=== PATIENT | male | born 1970 | race Hispanic/Latino ===

== ENCOUNTER 2016-11-30 03:07 | Emergency (ER) | payer SELFPAY ==
[2016-11-30 03:29] VITALS: BP 124/87
== END 2016-11-30 04:35 | disposition left against medical advice (07) ==
LOC: ED 03:07
DX: R06.02 Shortness of breath (principal); Z53.21 Procedure and treatment not carried out due to patient leaving prior to being seen by health care provider

== ENCOUNTER 2018-03-21 06:33 | Emergency (ER) | payer SELFPAY ==
[2018-03-21 06:47] VITALS: BP 151/93
[2018-03-21] MEDS ORDERED: CLEOCIN PO ONE (07:49)
--- NOTE | 2018-03-21 07:58 | Emergency Department Report ---
- General Chief complaint: Skin/Abscess/Foreign Body Stated complaint: WRIST RASH Time Seen by Provider: 03/21/18 07:49 Source: patient Mode of arrival: Ambulatory Limitations: No Limitations - History of Present Illness Initial comments: This is a 48-year-old male nontoxic, well nourished in appearance, no acute signs of distress presents to the ED with c/o of left wrist redness 4 days. They stated that he seen his primary care doctor 4 days ago and hasn't prescribed antibiotics for staph infection but has not filled it. He stated that he is homeless and had no money. Patient denies any pus, drainage, swelling, fever, chills, nausea, vomiting, chest pain shortness of breath. Patient denies any allergies. MD complaint: insect bite/sting -: days(s) (4) Location: LUE Severity: mild Severity scale (0 -10): 8 Quality: aching Consistency: constant Improves with: none Worsens with: none Context: none Associated symptoms: denies other symptoms - Related Data Previous Rx's Medication Instructions Recorded Last Taken Type Cyclobenzaprine [Flexeril 10mg] 10 mg PO TID PRN #30 tablet 02/03/14 Unknown Rx HYDROcodone/APAP 5-325 [[place] 1 each PO Q6HR PRN #20 tablet 02/03/14 Unknown Rx 5/325] Sulfamethoxazole/Trimethoprim 1 each PO BID #20 tablet 10/01/15 Unknown Rx [Bactrim DS TAB] traMADol [Ultram] 50 mg PO Q6HR PRN #14 tablet 10/01/15 Unknown Rx Ibuprofen [Motrin] 600 mg PO Q8H PRN #20 tablet 03/21/18 Unknown Rx Sulfamethoxazole/Trimethoprim 1 each PO BID #20 tablet 03/21/18 Unknown Rx [Bactrim DS TAB] Allergies Allergy/AdvReac Type Severity Reaction Status Date / Time No Known Allergies Allergy Verified 02/03/14 07:50 Abscess Boil HPI - HPI Chief Complaint: Skin/Abscess/Foreign Body Stated Complaint: WRIST RASH Time Seen by Provider: 03/21/18 07:49 Home Medications: Previous Rx's Medication Instructions Recorded Last Taken Type Cyclobenzaprine [Flexeril 10mg] 10 mg PO TID PRN #30 tablet 02/03/14 Unknown Rx HYDROcodone/APAP 5-325 [[place] 1 each PO Q6HR PRN #20 tablet 02/03/14 Unknown Rx 5/325] Sulfamethoxazole/Trimethoprim 1 each PO BID #20 tablet 10/01/15 Unknown Rx [Bactrim DS TAB] traMADol [Ultram] 50 mg PO Q6HR PRN #14 tablet 10/01/15 Unknown Rx Ibuprofen [Motrin] 600 mg PO Q8H PRN #20 tablet 03/21/18 Unknown Rx Sulfamethoxazole/Trimethoprim 1 each PO BID #20 tablet 03/21/18 Unknown Rx [Bactrim DS TAB] Allergies/Adverse Reactions: Allergies Allergy/AdvReac Type Severity Reaction Status Date / Time No Known Allergies Allergy Verified 02/03/14 07:50 ED Review of Systems ROS: Stated complaint: WRIST RASH Other details as noted in HPI Constitutional: denies: chills, fever Eyes: denies: eye pain, eye discharge, vision change ENT: denies: ear pain, throat pain Respiratory: denies: cough, shortness of breath, wheezing Cardiovascular: denies: chest pain, palpitations Endocrine: no symptoms reported Gastrointestinal: denies: abdominal pain, nausea, diarrhea Genitourinary: denies: urgency, dysuria Musculoskeletal: denies: back pain, joint swelling, arthralgia Skin: denies: rash, lesions Neurological: denies: headache, weakness, paresthesias Psychiatric: denies: anxiety, depression Hematological/Lymphatic: denies: easy bleeding, easy bruising ED Past Medical Hx - Past Medical History Previous Medical History?: Yes Additional medical history: Staph infection, Testicle Distortion, Chronic Shoulder 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 a work accident - Surgical History Past Surgical History?: Yes Additional Surgical History: Testicle Distortion - Social History Smoking Status: Current Some Day Smoker - Medications Home Medications: Home Medications Medication Instructions Recorded Confirmed Last Taken Type Cyclobenzaprine [Flexeril 10mg] 10 mg PO TID PRN #30 tablet 02/03/14 Unknown Rx HYDROcodone/APAP 5-325 [[place] 1 each PO Q6HR PRN #20 tablet 02/03/14 Unknown Rx 5/325] Sulfamethoxazole/Trimethoprim 1 each PO BID #20 tablet 10/01/15 Unknown Rx [Bactrim DS TAB] traMADol [Ultram] 50 mg PO Q6HR PRN #14 tablet 10/01/15 Unknown Rx Ibuprofen [Motrin] 600 mg PO Q8H PRN #20 tablet 03/21/18 Unknown Rx Sulfamethoxazole/Trimethoprim 1 each PO BID #20 tablet 03/21/18 Unknown Rx [Bactrim DS TAB] ED Physical Exam - General Limitations: No Limitations General appearance: alert, in no apparent distress - Head Head exam: Present: atraumatic, normocephalic - Eye Eye exam: Present: normal appearance - Neck Neck exam: Present: normal inspection, full ROM - Extremities Exam Extremities exam: Present: normal inspection, full ROM, tenderness, normal capillary refill. Absent: joint swelling - Expanded Upper Extremity Exam Left General: Present: normal inspection Shoulder Exam: Present: normal inspection, full ROM Upper Arm exam: Present: normal inspection, full ROM Elbow exam: Present: normal inspection, full ROM Forearm Wrist exam: Present: normal inspection, full ROM Hand Wrist exam: Present: normal inspection, full ROM, tenderness, erythema. Absent: swelling, abrasion, laceration, ecchymosis, deformity, crepidus, dislocation, amputation, nail avulsion, subungual hematoma Hand L/R Back: 1 - Erythema with tenderness to touch with no induration or fluctuance. Vascular: Present: vascular compromise, normal capillary refill - Back Exam Back exam: Present: normal inspection, full ROM - Neurological Exam Neurological exam: Present: alert, oriented X3 - Psychiatric Psychiatric exam: Present: normal affect, normal mood - Skin Skin exam: Present: warm, dry, intact, normal color. Absent: rash ED Course Vital Signs 03/21/18 03/21/18 06:36 07:06 Temperature 97.5 F L 97.5 F L Pulse Rate 111 H 110 H Respiratory 18 18 Rate Blood Pressure 151/93 151/93 O2 Sat by Pulse 100 99 Oximetry - Reevaluation(s) Reevaluation #1: 03/21/18 07:58 Patient is speaking in full sentences with no signs of distress noted. ED Medical Decision Making - Medical Decision Making This is a 48-year-old male that presents with cellulitis. Patient is stable and was examined by me. There is no induration, fluctuance. No signs of abscess formation. The area has been outlined with a permanent marker and patient was instructed to observe symptoms of increased redness or swelling and to return to the ER if this does occur. I will discharge patient with Bactrim with good RX card as this may be free at [facility]. Patient did received first dose in the ED of clinda 600 mg in the ER. Patient was referred to Follow-up with a primary care doctor in 3-5 days or if symptoms worsen and continue return to emergency room as soon as possible. At time of discharge, the patient does not seem toxic or ill in appearance. No acute signs of distress noted. Patient agrees to discharge treatment plan of care. No further questions noted by the patient. Critical care attestation.: If time is entered above; I have spent that time in minutes in the direct care of this critically ill patient, excluding procedure time. ED Disposition Clinical Impression: Cellulitis Qualifiers: Site of cellulitis: extremity Site of cellulitis of extremity: upper extremity Laterality: left Qualified Code(s): L03.114 - Cellulitis of left upper limb Disposition: DC- TO HOME OR SELFCARE Is pt being admited?: No Does the pt Need Aspirin: No Condition: Stable Instructions: Cellulitis (ED) Additional Instructions: Follow-up with a primary care doctor in 3-5 days or if symptoms worsen and continue return to emergency room as soon as possible. As instructed and directed to you in the ED, if swelling occurs or symptoms of r edness worsens please come back to the ED for further evaluation and treatment with possible incision and drainage. Go to your nearest Public pharmacy, as Bactrim may be at a very low cost/free. Prescriptions: Ibuprofen [Motrin] 600 mg PO Q8H PRN #20 tablet PRN Reason: Pain Sulfamethoxazole/Trimethoprim [Bactrim DS TAB] 1 each PO BID #20 tablet Referrals: PRIMARY CAREMD [Referring] - 3-5 Days KATERINA AMIN MD [Staff Physician] - 3-5 Days [facility] [place] [Outside] - 3-5 Days [facility] [Outside] - 3-5 Days
== END 2018-03-21 08:05 | disposition home or self-care (01) ==
LOC: ED 06:33
DX: L03.114 Cellulitis of left upper limb (principal); F17.200 Nicotine dependence, unspecified, uncomplicated
CPT/HCPCS: 99282

== ENCOUNTER 2020-02-14 10:14 | Emergency (ER) | payer SELFPAY ==
[2020-02-14 11:10] LABS: Basophils # (Auto) 0.1 K/mm3 (0.0-0.1); Basophils % (Auto) 1.1 % (0.0-1.8); Eosinophils # (Auto) 0.9 K/mm3 (0.0-0.4); Eosinophils % (Auto) 6.9 % (0.0-4.3); Hematocrit 47.8 % (35.5-45.6); Hemoglobin 15.8 gm/dl (11.8-15.2); Lymphocytes # (Auto) 3.5 K/mm3 (1.2-5.4); Lymphocytes % (Auto) 26.8 % (13.4-35.0); Mean Corpuscular HGB Conc 33 % (32-34); Mean Corpuscular Volume 93 fl (84-94); Monocytes # (Auto) 1.2 K/mm3 (0.0-0.8); Monocytes % (Auto) 8.8 % (0.0-7.3); Platelet Count 547 K/mm3 (140-440); Red Blood Count 5.13 M/mm3 (3.65-5.03); Red Cell Distribution Width 12.9 % (13.2-15.2)
[2020-02-14 11:36] LABS: Alanine Aminotransferase 50 units/L (7-56); Albumin 4.2 g/dL (3.9-5); Blood Urea Nitrogen 13 mg/dL (9-20); Calcium 9.5 mg/dL (8.4-10.2); Hemolysis Index 18
[2020-02-14 11:44] LABS: BUN/Creatinine Ratio 19
[2020-02-14 11:49] LABS: Amorphous Crystals,Urine 1+; Bilirubin,Urine NEG (Negative); Blood,Urine NEG (Negative); Color,Urine Yellow (Yellow); Mucus,Urine FEW /HPF; Protein,Urine <15 mg/dL mg/dL (Negative)
[2020-02-14 11:50] LABS: RBC,Urine < 1.0 /HPF (0.0-6.0)
[2020-02-14] MEDS ORDERED: ONDANSETRON 4 MG/2 ML INJ IV ONE (13:15)
[2020-02-14] MEDS ORDERED: SODIUM CHLORIDE 0.9% 1000 ML 1,000 ML IV ONE (13:15)
[2020-02-14] MEDS ORDERED: MORPHINE 4 MG/1 ML INJ IV ONE (13:15)
--- NOTE | 2020-02-14 13:15 | Emergency Department Report ---
ED Abdominal Pain HPI - General Chief Complaint: Abdominal Pain Stated Complaint: BACK PAIN Time Seen by Provider: 02/14/20 12:44 Source: patient Mode of arrival: Ambulatory Limitations: No Limitations - History of Present Illness Initial Comments: This is a pleasant 50-year-old male presents the emergency department chief complaint of left lower quadrant pain for the past 10 days. Patient reports it starts in the left side of his back and radiates to the left lower quadrant. He reports there is associated painful urination and pain in the groin. He rates severity of his pain is an 8 out of 10. He denies any associated fever, chills, night sweats, headache, dizziness, blurry vision, nausea, vomit, diarrhea, chest pain, shortness of breath or any other associated symptoms. Severity scale (0 -10): 8 - Related Data Previous Rx's Medication Instructions Recorded Last Taken Type Cyclobenzaprine [Flexeril 10mg] 10 mg PO TID PRN #30 tablet 02/03/14 Unknown Rx HYDROcodone/APAP 5-325 [[place] 1 each PO Q6HR PRN #20 tablet 02/03/14 Unknown Rx 5/325] Sulfamethoxazole/Trimethoprim 1 each PO BID #20 tablet 10/01/15 Unknown Rx [Bactrim DS TAB] traMADoL [Ultram] 50 mg PO Q6HR PRN #14 tablet 10/01/15 Unknown Rx Ibuprofen [Motrin] 600 mg PO Q8H PRN #20 tablet 03/21/18 Unknown Rx Sulfamethoxazole/Trimethoprim 1 each PO BID #20 tablet 03/21/18 Unknown Rx [Bactrim DS TAB] Acetaminophen with Codeine 1 each PO Q6HR #12 tablet 02/14/20 Unknown Rx [Acetaminophen-Codeine #4 TAB] Ciprofloxacin HCl [Ciprofloxacin 500 mg PO Q12HR #20 tab 02/14/20 Unknown Rx TAB] metroNIDAZOLE [Flagyl] 500 mg PO Q8HR #30 tablet 02/14/20 Unknown Rx Allergies Allergy/AdvReac Type Severity Reaction Status Date / Time No Known Allergies Allergy Verified 02/03/14 07:50 ED Review of Systems ROS: Stated complaint: BACK PAIN Other details as noted in HPI Constitutional: denies: chills, fever Eyes: denies: eye pain, eye discharge, vision change ENT: denies: ear pain, throat pain Respiratory: denies: cough, shortness of breath, wheezing Cardiovascular: denies: chest pain, palpitations Endocrine: no symptoms reported Gastrointestinal: as per HPI, abdominal pain. 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 a work accident - Surgical History Past Surgical History?: Yes Additional Surgical History: Testicle Distortion - Social History Smoking Status: Current Some Day Smoker - Medications Home Medications: Home Medications Medication Instructions Recorded Confirmed Last Taken Type Cyclobenzaprine [Flexeril 10mg] 10 mg PO TID PRN #30 tablet 02/03/14 Unknown Rx HYDROcodone/APAP 5-325 [[place] 1 each PO Q6HR PRN #20 tablet 02/03/14 Unknown Rx 5/325] Sulfamethoxazole/Trimethoprim 1 each PO BID #20 tablet 10/01/15 Unknown Rx [Bactrim DS TAB] traMADoL [Ultram] 50 mg PO Q6HR PRN #14 tablet 10/01/15 Unknown Rx Ibuprofen [Motrin] 600 mg PO Q8H PRN #20 tablet 03/21/18 Unknown Rx Sulfamethoxazole/Trimethoprim 1 each PO BID #20 tablet 03/21/18 Unknown Rx [Bactrim DS TAB] Acetaminophen with Codeine 1 each PO Q6HR #12 tablet 02/14/20 Unknown Rx [Acetaminophen-Codeine #4 TAB] Ciprofloxacin HCl [Ciprofloxacin 500 mg PO Q12HR #20 tab 02/14/20 Unknown Rx TAB] metroNIDAZOLE [Flagyl] 500 mg PO Q8HR #30 tablet 02/14/20 Unknown Rx ED Physical Exam - General Limitations: No Limitations General appearance: alert, in no apparent distress - Head Head exam: Present: atraumatic, normocephalic - Eye Eye exam: Present: normal appearance, PERRL, EOMI Pupils: Present: normal accommodation - ENT ENT exam: Present: normal exam, normal orophraynx, mucous membranes moist - Neck Neck exam: Present: normal inspection, full ROM. Absent: tenderness, m eningismus - Respiratory Respiratory exam: Present: normal lung sounds bilaterally. Absent: respiratory distress, wheezes, rales, rhonchi, stridor, chest wall tenderness - Cardiovascular Cardiovascular Exam: Present: regular rate, normal rhythm, normal heart sounds. Absent: systolic murmur, diastolic murmur, rubs, gallop - GI/Abdominal GI/Abdominal exam: Present: soft, tenderness (Tenderness left lower quadrant, no rebound or guarding, mild CVA tenderness on the left), normal bowel sounds. Absent: distended, guarding, rebound, rigid - Rectal Rectal exam: Present: deferred - Extremities Exam Extremities exam: Present: normal inspection, full ROM, normal capillary refill. Absent: tenderness, calf tenderness - Back Exam Back exam: Present: normal inspection, full ROM, CVA tenderness (L). Absent: tenderness, CVA tenderness (R) - Neurological Exam Neurological exam: Present: alert, oriented X3, CN II-XII intact, normal gait - Psychiatric Psychiatric exam: Present: normal affect, normal mood - Skin Skin exam: Present: warm, dry, intact, normal color. Absent: rash ED Course Vital Signs 02/14/20 10:37 Temperature 97.7 F Pulse Rate 115 H Respiratory 18 Rate Blood Pressure 174/95 [Right] O2 Sat by Pulse 96 Oximetry ED Medical Decision Making - Lab Data Result diagrams: 02/14/20 10:52 02/14/20 10:52 Lab Results 02/14/20 02/14/20 02/14/20 Range/Units 10:52 10:52 11:04 WBC 13.2 H (4.5-11.0) K/mm3 RBC 5.13 H (3.65-5.03) M/mm3 Hgb 15.8 H (11.8-15.2) gm/dl Hct 47.8 H (35.5-45.6) % MCV 93 (84-94) fl MCH 31 (28-32) pg MCHC 33 (32-34) % RDW 12.9 L (13.2-15.2) % Plt Count 547 H (140-440) K/mm3 Lymph % (Auto) 26.8 (13.4-35.0) % [place] % (Auto) 8.8 H (0.0-7.3) % Eos % (Auto) 6.9 H (0.0-4.3) % Baso % (Auto) 1.1 (0.0-1.8) % Lymph # (Auto) 3.5 (1.2-5.4) K/mm3 [place] # (Auto) 1.2 H (0.0-0.8) K/mm3 Eos # (Auto) 0.9 H (0.0-0.4) K/mm3 Baso # (Auto) 0.1 (0.0-0.1) K/mm3 Seg Neutrophils % 56.4 (40.0-70.0) % Seg Neutrophils # 7.4 (1.8-7.7) K/mm3 Sodium 139 (137-145) mmol/L Potassium 4.3 (3.6-5.0) mmol/L Chloride 103.7 (98-107) mmol/L Carbon Dioxide 26 (22-30) mmol/L Anion Gap 14 mmol/L BUN 13 (9-20) mg/dL Creatinine 0.7 L (0.8-1.3) mg/dL Estimated GFR > 60 ml/min BUN/Creatinine Ratio 19 % Glucose 133 H (75-100) mg/dL Calcium 9.5 (8.4-10.2) mg/dL Total Bilirubin 0.20 (0.1-1.2) mg/dL AST 23 (5-40) units/L ALT 50 (7-56) units/L Alkaline Phosphatase 66 (35-129) units/L Total Protein 7.0 (6.3-8.2) g/dL Albumin 4.2 (3.9-5) g/dL Albumin/Globulin Ratio 1.5 % Urine Color Yellow (Yellow) Urine Turbidity Hazy (Clear) Urine pH 7.0 (5.0-7.0) Ur Specific [place] 1.019 (1.003-1.030) Urine Protein <15 mg/dl (Negative) mg/dL Urine Glucose (UA) Neg (Negative) mg/dL Urine Ketones Neg (Negative) mg/dL Urine Blood Neg (Negative) Urine Nitrite Neg (Negative) Urine Bilirubin Neg (Negative) Urine Urobilinogen 2.0 (<2.0) mg/dL Ur Leukocyte Esterase Neg (Negative) Urine WBC (Auto) 1.0 (0.0-6.0) /HPF Urine RBC (Auto) < 1.0 (0.0-6.0) /HPF U Epithel Cells (Auto) < 1.0 (0-13.0) /HPF Amorphous Crystals 1+ Urine Mucus Few /HPF - Radiology Data Radiology results: report reviewed, image reviewed Cat Scan Report Signed Patient: IMELDA SPEARS MR#: [id number] : 1970 Acct:[id number] Age/Sex: 50 / M ADM Date: 02/14/20 Loc: ED Attending Dr: Ordering Physician: AMARA DE LA TORRE Date of Service: 02/14/20 Procedure(s): CT abdomen pelvis w con Accession Number(s): [id number] cc: AMARA DE LA TORRE CT ABDOMEN AND PELVIS WITH CONTRAST INDICATION / CLINICAL INFORMATION: LLQ abdominal pain. TECHNIQUE: Axial CT images were obtained through the abdomen and pelvis after 100 cc Omnipaque [address] scans at this location are performed using CT dose reduction for ALARA by means of automated exposure control. COMPARISON: None available. FINDINGS: LOWER CHEST: No significant abnormality. LIVER: No significant abnormality. GALLBLADDER: Cholelithiasis without evidence of acute cholecystitis. BILE DUCTS: No significant abnormality. PANCREAS: No significant abnormality. SPLEEN: No significant abnormality. ADRENALS: No significant abnormality. RIGHT KIDNEY / URETER: No significant abnormality. LEFT KIDNEY / URETER: No significant abnormality. STOMACH / SMALL BOWEL: No significant abnormality. COLON: The sigmoid colon is redundant. Along the distal third of the descending colon is a segment of mild wall thickening with mild surrounding inflammation. Scattered div erticula are present along this portion of the colon as well as elsewhere along the descending and sigmoid colon. No other significant abnormality. APPENDIX: No significant abnormality. PERITONEUM: No free fluid. No free air. No fluid collection. LYMPH NODES: No significant adenopathy. AORTA / ARTERIES: Mild generalized atherosclerosis without other significant abnormalities. IVC / VEINS: No significant abnormality. URINARY BLADDER: No significant abnormality. REPRODUCTIVE ORGANS: No significant abnormality. ADDITIONAL FINDINGS: None. SKELETAL SYSTEM: No significant abnormality. IMPRESSION: 1. Uncomplicated mild acute descending colonic diverticulitis. 2. Additional findings as above. Signer Name: Pankaj John MD Signed: 02/14/2020 2:50 PM Workstation Name: [id number] Transcribed By: SEJAL Dictated By: Pankaj John MD Electronically Authenticated By: Pankaj John MD Signed Date/Time: 02/14/20 145 DD/ 1440 - Medical Decision Making Patient nontoxic in no acute distress. Vital signs stable. CAT scan was consistent with mild uncomplicated diverticulitis of the descending colon per radiology read. Patient was given first dose of Cipro Flagyl here in the emergency department I will discharge him in stable condition home with a prescription for Cipro, Flagyl, pain medication. Patient's repeat abdominal exam was soft with no guarding or rigidity. He felt better and was comfortable with going home. He is instructed to follow-up with his primary care doctor in the next 2 3 days or return to the emergency department he develops any changing worsening symptoms specifically severe worsening abdominal pain. There were no signs of an abscess or perforation however he was educated that if his symptoms get significantly worse he was still at risk of this. He agreed to this plan verbalized understand the diagnosis, treatment plan and follow-up instructions and all his questions were answered. - Differential Diagnosis Diverticulitis, colitis, nephrolithiasis Critical care attestation.: If time is entered above; I have spent that time in minutes in the direct care of this critically ill patient, excluding procedure time. ED Disposition Clinical Impression: Acute diverticulitis Disposition: - TO HOME OR SELFCARE Is pt being admited?: No Condition: Stable Instructions: Diverticulitis Prescriptions: Acetaminophen with Codeine [Acetaminophen-Codeine #4 TAB] 1 each PO Q6HR #12 tablet Ciprofloxacin HCl [Ciprofloxacin TAB] 500 mg PO Q12HR #20 tab metroNIDAZOLE [Flagyl] 500 mg PO Q8HR #30 tablet Referrals: CIRILO GRAFF MD [Primary Care Provider] - 3-5 Days DOMINGA ORTIZ MD [Staff Physician] - 3-[address] [facility] [Provider Group] - 3-5 Days Forms: Work/School Release Form(ED) Time of Disposition: 15:03
--- NOTE | 2020-02-14 14:54 | Cat Scan Report ---
CT ABDOMEN AND PELVIS WITH CONTRAST INDICATION / CLINICAL INFORMATION: LLQ abdominal pain. TECHNIQUE: Axial CT images were obtained through the abdomen and pelvis after 100 cc Omnipaque [address] scans at this location are performed using CT dose reduction for ALARA by means of automated exposure control. COMPARISON: None available. FINDINGS: LOWER CHEST: No significant abnormality. LIVER: No significant abnormality. GALLBLADDER: Cholelithiasis without evidence of acute cholecystitis. BILE DUCTS: No significant abnormality. PANCREAS: No significant abnormality. SPLEEN: No significant abnormality. ADRENALS: No significant abnormality. RIGHT KIDNEY / URETER: No significant abnormality. LEFT KIDNEY / URETER: No significant abnormality. STOMACH / SMALL BOWEL: No significant abnormality. COLON: The sigmoid colon is redundant. Along the distal third of the descending colon is a segment of mild wall thickening with mild surrounding inflammation. Scattered diverticula are present along thi s portion of the colon as well as elsewhere along the descending and sigmoid colon. No other signific ant abnormality. APPENDIX: No significant abnormality. PERITONEUM: No free fluid. No free air. No fluid collection. LYMPH NODES: No significant adenopathy. AORTA / ARTERIES: Mild generalized atherosclerosis without other significant abnormalities. IVC / VEINS: No significant abnormality. URINARY BLADDER: No significant abnormality. REPRODUCTIVE ORGANS: No significant abnormality. ADDITIONAL FINDINGS: None. SKELETAL SYSTEM: No significant abnormality. IMPRESSION: 1. Uncomplicated mild acute descending colonic diverticulitis. 2. Additional findings as above. Signer Name: Pankaj John MD Signed: 02/14/2020 2:50 PM Workstation Name: [id number]
[2020-02-14] MEDS ORDERED: metroNIDAZOLE 500 MG TAB PO ONE (14:56)
[2020-02-14] MEDS ORDERED: levoFLOXacin 500 MG TAB PO ONE (14:56)
[2020-02-14] MEDS ORDERED: KETOROLAC 30 MG/1 ML INJ IV ONE (15:00)
[2020-02-14 15:40] VITALS: BP 162/92
== END 2020-02-14 15:40 | disposition home or self-care (01) ==
LOC: ED 10:14
DX: K57.92 Diverticulitis of intestine, part unspecified, without perforation or abscess without bleeding (principal); F17.200 Nicotine dependence, unspecified, uncomplicated; Z79.899 Other long term (current) drug therapy; Z98.890 Other specified postprocedural states
CPT/HCPCS: 36415; 74177; 80053; 81001; 85025; 96361; 96374; 96375; 99284; J1885; J2270; J2405; J7030; Q9967

== ENCOUNTER 2020-03-06 00:50 | Emergency (ER) | payer SELFPAY ==
--- NOTE | 2020-03-06 01:24 | Event Note ---
ED Screening Note ED Screening Note: Patient presents for generalized abdominal pain, bloating, dysuria, dark urine He denies any nausea, vomiting, diarrhea, constipation, fever He was recently seen a couple of weeks ago and diagnosed with diverticulitis and completed a course of antibiotics but states he does not feel better He has not followed up with a primary care doctor or GI doctor This initial assessment/diagnostic orders/clinical plan/treatment(s) is/are subject to change based on patients health status, clinical progression and re- assessment by fellow clinical providers in the ED. Further treatment and workup at subsequent clinical providers discretion. Patient/guardian urged not to elope from the ED as their condition may be serious if not clinically assessed and managed. Initial orders include: Labs, urine
[2020-03-06 02:01] LABS: Bilirubin,Urine NEG (Negative); Blood,Urine SM (Negative); Color,Urine Yellow (Yellow); Mucus,Urine FEW /HPF; Protein,Urine <15 mg/dL mg/dL (Negative); Urobilinogen,Urine < 2.0 mg/dL (<2.0)
[2020-03-06 02:20] LABS: Hematocrit 47.2 % (35.5-45.6); Hemoglobin 16.1 gm/dl (11.8-15.2); Mean Corpuscular HGB Conc 34 % (32-34); Mean Corpuscular Volume 93 fl (84-94); Platelet Count 576 K/mm3 (140-440); Red Blood Count 5.09 M/mm3 (3.65-5.03); Red Cell Distribution Width 13.2 % (13.2-15.2)
[2020-03-06 02:44] LABS: Alanine Aminotransferase 139 units/L (7-56); Albumin 4.3 g/dL (3.9-5); BUN/Creatinine Ratio 20; Blood Urea Nitrogen 16 mg/dL (9-20); Calcium 10.2 mg/dL (8.4-10.2); Hemolysis Index 11
[2020-03-06] MEDS ORDERED: SODIUM CHLORIDE 0.9% 1000 ML 1,000 ML IV ONE (03:33)
[2020-03-06 03:41] LABS: Total Cells Counted 100
[2020-03-06 03:42] LABS: Platelet Estimate Consistent w Auto; RBC Morphology Normal
[2020-03-06] MEDS ORDERED: fentaNYL 100 MCG/2 ML INJ IV ONE (03:42)
[2020-03-06] MEDS ORDERED: ONDANSETRON 4 MG/2 ML INJ IV ONE (03:42)
--- NOTE | 2020-03-06 03:47 | Emergency Department Report ---
HPI - General Chief Complaint: Abdominal Pain Time Seen by Provider: 03/06/20 01:23 - HPI HPI: Room 45 The patient is a 50-year-old male present with a chief complaint of abdominal pain. Patient was diagnosed with diverticulitis 02/14/2020. Patient was sent home with antibiotics which she states he has completed. The patient states his pain will wax and wane but has never resolved. Patient denies nausea vomiting or diarrhea. 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 work accident - Surgical History Additional Surgical History: Testicle Distortion - Family History Family history: no significant - Social History Smoking Status: Current Every Day Smoker (1/2 pack/day) Substance Use Type: Marijuana - Medications Home Medications: Home Medications Medication Instructions Recorded Confirmed Last Taken Type Cyclobenzaprine [Flexeril 10mg] 10 mg PO TID PRN #30 tablet 02/03/14 Unknown Rx HYDROcodone/APAP 5-325 [[place] 1 each PO Q6HR PRN #20 tablet 02/03/14 Unknown Rx 5/325] Sulfamethoxazole/Trimethoprim 1 each PO BID #20 tablet 10/01/15 Unknown Rx [Bactrim DS TAB] traMADoL [Ultram] 50 mg PO Q6HR PRN #14 tablet 10/01/15 Unknown Rx Ibuprofen [Motrin] 600 mg PO Q8H PRN #20 tablet 03/21/18 Unknown Rx Sulfamethoxazole/Trimethoprim 1 each PO BID #20 tablet 03/21/18 Unknown Rx [Bactrim DS TAB] Acetaminophen with Codeine 1 each PO Q6HR #12 tablet 02/14/20 Unknown Rx [Acetaminophen-Codeine #4 TAB] Ciprofloxacin HCl [Ciprofloxacin 500 mg PO Q12HR #20 tab 02/14/20 Unknown Rx TAB] metroNIDAZOLE [Flagyl] 500 mg PO Q8HR #30 tablet 02/14/20 Unknown Rx Famotidine [Pepcid] 20 mg PO BID #20 tablet 03/06/20 Unknown Rx traMADoL [Ultram] 50 mg PO Q6HR PRN #10 tablet 03/06/20 Unknown Rx ED Review of Systems ROS: Stated complaint: ABD PAIN Other details as noted in HPI Constitutional: no symptoms reported Eyes: denies: eye pain ENT: denies: throat pain Respiratory: no symptoms reported Cardiovascular: denies: chest pain Endocrine: no symptoms reported Gastrointestinal: abdominal pain. denies: nausea, vomiting, diarrhea Genitourinary: dysuria Musculoskeletal: back pain Neurological: denies: headache Physical Exam - Physical Exam Vital Signs: Vital Signs 03/06/20 00:59 Temperature 97.9 F Pulse Rate 116 H Respiratory 17 Rate Blood Pressure 155/106 O2 Sat by Pulse 97 Oximetry Physical Exam: GENERAL: The patient is well-developed well-nourished male lying on chair not appearing to be in acute distress HEENT: Normocephalic. Atraumatic. Extraocular motions are intact. Patient has moist mucous membranes. NECK: Supple. Trachea mid CHEST/LUNGS: Clear to auscultation. There is no respiratory distress noted. HEART/CARDIOVASCULAR: Regular. There is no tachycardia. There is no gallop rub or murmur. ABDOMEN: Abdomen is soft, with tenderness to palpation in the suprapubic, left lower quadrant and left upper quadrant. Patient has normal bowel sounds. There is no abdominal distention. SKIN: There is no rash. There is no edema. There is no diaphoresis. NEURO: The patient is awake, alert, and oriented. The patient is cooperative. The patient has normal speech MUSCULOSKELETAL: There is no evidence of acute injury. ED Course Vital Signs 03/06/20 00:59 Temperature 97.9 F Pulse Rate 116 H Respiratory 17 Rate Blood Pressure 155/106 O2 Sat by Pulse 97 Oximetry ED Medical Decision Making - Lab Data Result diagrams: 03/06/20 01:45 03/06/20 01:45 Laboratory Tests 03/06/20 03/06/20 03/06/20 01:15 01:45 01:45 WBC 11.4 H RBC 5.09 H Hgb 16.1 H Hct 47.2 H MCV 93 MCH 32 MCHC 34 RDW 13.2 Plt Count 576 H Baso % (Auto) Fancy Sewer Add Manual Diff Complete Total Counted 100 Seg Neuts % (Manual) 53.0 Lymphocytes % (Manual) 25.0 Monocytes % (Manual) 13.0 H Eosinophils % (Manual) 6.0 H Basophils % (Manual) 3.0 H Nucleated RBC % Not Reportable Seg Neutrophils # Man 6.0 Band Neutrophils # 0.0 Lymphocytes # (Manual) 2.9 Abs React Lymphs (Man) 0.0 Monocytes # (Manual) 1.5 H Eosinophils # (Manual) 0.7 H Basophils # (Manual) 0.3 H Metamyelocytes # 0.0 Myelocytes # 0.0 Promyelocytes # 0.0 Blast Cells # 0.0 WBC Morphology Not Reportable Hypersegmented Neuts Not Reportable Hyposegmented Neuts Not Reportable Hypogranular Neuts Not Reportable Smudge Cells Not Reportable Toxic Granulation Not Reportable Toxic Vacuolation Not Reportable Dohle Bodies Not Reportable Pelger-Huet Anomaly Not Reportable Mark Rods Not Reportable Platelet Estimate Consistent w auto Clumped Platelets Not Reportable Plt Clumps, EDTA Not Reportable Large Platelets Not Reportable Giant Platelets Not Reportable Platelet Satelliting Not Reportable Plt Morphology Comment Not Reportable RBC Morphology Normal Dimorphic RBCs Not Reportable Polychromasia Not Reportable Hypochromasia Not Reportable Poikilocytosis Not Reportable Anisocytosis Not Reportable Microcytosis Not Reportable Macrocytosis Not Reportable Spherocytes Not Reportable Pappenheimer Bodies Not Reportable Sickle Cells Not Reportable Target Cells Not Reportable Tear Drop Cells Not Reportable Ovalocytes Not Reportable Helmet Cells Not Reportable [place] Bodies Not Reportable Dobson Rings Not Reportable Weiser Cells Not Reportable Bite Cells Not Reportable Crenated Cell Not Reportable Elliptocytes Not Reportable Acanthocytes (Spur) Not Reportable Rouleaux Not Reportable Hemoglobin C Crystals Not Reportable Schistocytes Not Reportable Malaria parasites Not Reportable Alexis Bodies Not Reportable Hem Pathologist Commnt No Sodium 140 Potassium 4.2 Chloride 102.5 Carbon Dioxide 24 Anion Gap 18 BUN 16 Creatinine 0.8 Estimated GFR > 60 BUN/Creatinine Ratio 20 Glucose 126 H Calcium 10.2 Total Bilirubin 0.20 AST 62 H ALT 139 H Alkaline Phosphatase 70 Total Protein 7.2 Albumin 4.3 Albumin/Globulin Ratio 1.5 Lipase 22 Urine Color Yellow Urine Turbidity Clear Urine pH 6.0 Ur Specific [place] 1.019 Urine Protein <15 mg/dl Urine Glucose (UA) Neg Urine Ketones Neg Urine Blood Sm Urine Nitrite Neg Urine Bilirubin Neg Urine Urobilinogen < 2.0 Ur Leukocyte Esterase Neg Urine WBC (Auto) 1.0 Urine RBC (Auto) 3.0 U Epithel Cells (Auto) < 1.0 Urine Mucus Few - Radiology Data Radiology results: report reviewed (CT abdomen pelvis), image reviewed (CT abdomen pelvis) [facility] [address] [place] [address] Cat Scan Report Signed Patient: IMELDA SPEARS MR#: [id number] : 1970 Acct:[id number] Age/Sex: 50 / M ADM Date: 03/06/20 Loc: ED Attending Dr: Ordering Physician: NINI PLASCENCIA MD Date of Service: 03/06/20 Procedure(s): CT abdomen pelvis w con Accession Number(s): [id number] cc: NINI PLASCENCIA MD CT abdomen pelvis w con INDICATION: Dx'd with Diverticulitis x 3 weeks ago [employer]. Pain worse now.. COMPARISON: CT abdomen 02/14/2020 TECHNIQUE: Abdominal and pelvic CT exam performed. All CT scans at this location are performed using CT dose reduction for ALARA by means of automated exposure control. FINDINGS: CT ABDOMEN and PELVIS: Lung Bases: No significant abnormality. Liver: No significant abnormality. Biliary: Gallstones without gallbladder wall thickening or pericholecystic fluid. Spleen: No significant abnormality. Pancreas: No s ignificant abnormality. Adrenals: No significant abnormality. Kidneys: No significant abnormality. Lymphatics: No lymphadenopathy. Vasculature: No significant abnormality. Bowel: Diverticulosis without colonic wall thickening or pericolonic stranding. Normal appendix. Pelvis: No significant abnormality. Osseous Structures: No aggressive osseous lesion. Additional Findings: None IMPRESSION: 1. No acute abnormality of the abdomen or pelvis. No diverticulitis on today's examination. Signer Name: Diego Dixon MD Signed: 03/06/2020 4:49 AM Workstation Name: [id number] Transcribed By: Dictated By: Diego Dixon MD Electronically Authenticated By: Diego Dixon MD Signed Date/Time: 03/06/20448 DD/ 4 TD/TT: - Differential Diagnosis Colonic abscess, unresolved diverticulitis, gastritis, bowel perforation Critical care attestation.: If time is entered above; I have spent that time in minutes in the direct care of this critically ill patient, excluding procedure time. ED Disposition Clinical Impression: Abdominal pain Disposition: DC-01 TO HOME OR SELFCARE Is pt being admited?: No Does the pt Need Aspirin: No Condition: Stable Instructions: Abdominal Pain, Adult, [id number] Additional Instructions: Return to the emergency department should you develop worsening symptoms, inability to tolerate food or liquids, high fever or any other concerns Prescriptions: Famotidine [Pepcid] 20 mg PO BID #20 tablet traMADoL [Ultram] 50 mg PO Q6HR PRN #10 tablet PRN Reason: Pain Referrals: PRIMARY CARE, [Primary Care Provider] - 3-5 Days Time of Disposition: 04:58
--- NOTE | 2020-03-06 04:53 | Cat Scan Report ---
CT abdomen pelvis w con INDICATION: Dx'd with Diverticulitis x 3 weeks ago [employer]. Pain worse now.. COMPARISON: CT abdomen 02/14/2020 TECHNIQUE: Abdominal and pelvic CT exam performed. All CT scans at this location are performed using CT dose reduction for ALARA by means of automated exposure control. FINDINGS: CT ABDOMEN and PELVIS: Lung Bases: No significant abnormality. Liver: No significant abnormality. Biliary: Gallstones without gallbladder wall thickening or pericholecystic fluid. Spleen: No significant abnormality. Pancreas: No significant abnormality. Adrenals: No significant abnormality. Kidneys: No significant abnormality. Lymphatics: No lymphadenopathy. Vasculature: No significant abnormality. Bowel: Diverticulosis without colonic wall thickening or pericolonic stranding. Normal appendix. Pelvis: No significant abnormality. Osseous Structures: No aggressive osseous lesion. Additional Findings: None IMPRESSION: 1. No acute abnormality of the abdomen or pelvis. No diverticulitis on today's examination. Signer Name: Diego Dixon MD Signed: 03/06/2020 4:49 AM Workstation Name: [id number]
[2020-03-06 05:38] VITALS: BP 157/78
== END 2020-03-06 05:30 | disposition home or self-care (01) ==
LOC: ED 00:50
DX: R10.9 Unspecified abdominal pain (principal); F17.200 Nicotine dependence, unspecified, uncomplicated; F12.10 Cannabis abuse, uncomplicated; Z79.899 Other long term (current) drug therapy
CPT/HCPCS: 36415; 74177; 80053; 81001; 83690; 85007; 85025; 96361; 96374; 96375; 99284; J2405; J3010; J7030; Q9967